=== PATIENT | female | born 1940 | race Caucasian/White ===

== ENCOUNTER 2017-03-19 02:58 | Emergency (ER) | payer MEDICARE ==
[~2017-03-19] VITALS: Ht 160 cm; Wt 81.8 kg
[2017-03-19 06:20] VITALS: BP 141/82
[2017-03-19] MEDS ORDERED: LIDOCAINE HCL/PF 1% 2 ML VIAL IM ONE (06:45)
[2017-03-19] MEDS ORDERED: CefTRIAXone SODIUM 1 GM/VIAL IM ONE (06:45)
== END 2017-03-19 07:20 | disposition home or self-care (01) ==
LOC: EMS 02:59
DX: J40 Bronchitis, not specified as acute or chronic (principal); E78.00 Pure hypercholesterolemia, unspecified; I10 Essential (primary) hypertension
CPT/HCPCS: 71045; 99283; J0696; J3490

== ENCOUNTER 2017-04-12 13:58 | Emergency (ER) | payer MEDICARE ==
[~2017-04-12] VITALS: Ht 160 cm; Wt 102.7 kg
[2017-04-12 14:20] VITALS: BP 155/76
[2017-04-12] MEDS: GuaiFENesin/D-METHORPHAN [SUGAR-FREE] 200-20MG/10 ML SYRUP UDCUP PO ONE (15:48)
== END 2017-04-12 16:08 | disposition home or self-care (01) ==
LOC: EMS 14:00
DX: I10 Essential (primary) hypertension (principal); J40 Bronchitis, not specified as acute or chronic; E78.00 Pure hypercholesterolemia, unspecified
CPT/HCPCS: 99283

== ENCOUNTER 2017-09-23 23:25 | Emergency (ER) | payer MEDICARE ==
[~2017-09-23] VITALS: Ht 162.6 cm; Wt 100.0 kg
[2017-09-24 00:33] LABS: BASOPHILS % (AUTO) 0.9 % (0.0-2.0); EOSINOPHILS % (AUTO) 3.4 % (1.0-6.0); HEMATOCRIT 34.5 % (36-46); HEMOGLOBIN 11.6 g/dL (12.0-16.0); LYMPHOCYTES # (AUTO) 1.3 K/uL (1.0-4.8); MEAN CORPUSCULAR HEMOGLOBIN 29.8 pg (26.0-34.0); MEAN CORPUSCULAR HGB CONC 33.8 G/dL (31.0-37.0); MEAN CORPUSCULAR VOLUME 88 fL (80-100); MONOCYTES # (AUTO) 0.5 K/uL (0.1-1.0); MONOCYTES % (AUTO) 7.8 % (2.0-9.0); NEUTROPHILS % (AUTO) 66.9 % (40.0-70.0); PLATELET COUNT (AUTO) 183 K/uL (150-450); RED CELL DISTRIBUTION WIDTH 14.1 % (11.5-14.5)
[2017-09-24 00:40] LABS: ANION GAP 8 mmol/L (8-16); CALCIUM, TOTAL 8.6 mg/dL (8.8-10.5); CARBON DIOXIDE 25 mmol/L (22-29); CHLORIDE 105 mmol/L (98-107); CREATININE 0.74 mg/dL (0.60-1.30); GLUCOSE,RANDOM 110 mg/dL (70-110); POTASSIUM 3.8 mmol/L (3.5-5.1); SODIUM SERUM 138 mmol/L (136-145); UREA NITROGEN, BLOOD 15 mg/dL (7-18)
[2017-09-24 00:41] LABS: GLOMERULAR FILTR. RATE CALC > 60 mL/min (>60)
[2017-09-24 00:46] LABS: ALANINE AMINOTRANSFERASE 13 U/L (12-78); ALBUMIN 3.2 g/dL (3.4-5.0); ALKALINE PHOSPHATASE 93 U/L (46-116); ASPARTATE AMINOTRANSFERASE 11 U/L (15-37); BILIRUBIN,TOTAL 0.4 mg/dL (0.1-1.0); TOTAL PROTEIN, SERUM 7.8 g/dL (6.4-8.2)
[2017-09-24 01:53] LABS: LIPASE 199 U/L (73-393)
[2017-09-24 04:14] VITALS: BP 129/88
== END 2017-09-24 04:47 | disposition home or self-care (01) ==
LOC: EMS 23:26
DX: K64.4 Residual hemorrhoidal skin tags (principal); K59.00 Constipation, unspecified; R60.0 Localized edema; I10 Essential (primary) hypertension; E78.00 Pure hypercholesterolemia, unspecified
CPT/HCPCS: 93005; 99285

== ENCOUNTER 2019-01-09 08:38 | Emergency (ER) | payer MEDICARE ==
[~2019-01-09] VITALS: Ht 167.6 cm; Wt 101.9 kg
[2019-01-09] MEDS ORDERED: SODIUM CHLORIDE 0.9% 1,000 ML IV ONE (09:02)
[2019-01-09] MEDS ORDERED: ACETAMINOPHEN 500 MG TABLET PO ONE (09:15)
[2019-01-09 09:56] LABS: BASOPHILS % (AUTO) 0.3 % (0.0-2.0); EOSINOPHILS % (AUTO) 0.3 % (1.0-6.0); HEMATOCRIT 41.9 % (36-46); HEMOGLOBIN 14.3 g/dL (12.0-16.0); LYMPHOCYTES # (AUTO) 0.4 K/uL (1.0-4.8); LYMPHOCYTES % (AUTO) 5.9 % (22.0-44.0); MEAN CORPUSCULAR HEMOGLOBIN 31.1 pg (26.0-34.0); MEAN CORPUSCULAR HGB CONC 34.1 G/dL (31.0-37.0); MEAN CORPUSCULAR VOLUME 91 fL (80-100); MONOCYTES # (AUTO) 0.1 K/uL (0.1-1.0); MONOCYTES % (AUTO) 1.9 % (2.0-9.0); NEUTROPHILS # (AUTO) 6.1 K/uL (1.8-7.7); PLATELET COUNT (AUTO) 110 K/uL (150-450); RED CELL DISTRIBUTION WIDTH 13.6 % (11.5-14.5)
[2019-01-09 10:04] LABS: NEUTROPHILS % (AUTO) 91.6 % (40.0-70.0)
[2019-01-09 10:05] LABS: BILIRUBIN,URINE NEGATIVE (NEGATIVE); GLUCOSE, URINE (UA) NEGATIVE (NEGATIVE); KETONES,URINE NEGATIVE (NEGATIVE); LEUKOCYTE ESTERASE ,URINE NEGATIVE (NEGATIVE); NITRATE,URINE NEGATIVE (NEGATIVE); OCCULT BLOOD,URINE NEGATIVE (NEGATIVE); PROTEIN,URINE NEGATIVE (NEGATIVE); UROBILINOGEN,URINE 0.2 mg/dL (<=1.0)
[2019-01-09 10:06] LABS: APPEARANCE,URINE CLEAR (CLEAR)
[2019-01-09 10:13] LABS: ANION GAP 11 mmol/L (8-16); CALCIUM, TOTAL 9.3 mg/dL (8.8-10.5); CARBON DIOXIDE 26 mmol/L (22-29); CHLORIDE 103 mmol/L (98-107); CREATININE 0.83 mg/dL (0.60-1.30); GLUCOSE,RANDOM 104 mg/dL (70-110); POTASSIUM 3.2 mmol/L (3.5-5.1); SODIUM SERUM 140 mmol/L (136-145); UREA NITROGEN, BLOOD 14 mg/dL (7-18)
[2019-01-09 10:18] LABS: ALANINE AMINOTRANSFERASE 18 U/L (12-78); ALKALINE PHOSPHATASE 91 U/L (46-116); ASPARTATE AMINOTRANSFERASE 19 U/L (15-37); BILIRUBIN,TOTAL 0.6 mg/dL (0.1-1.0); CREATINE KINASE, TOTAL ONLY 65 U/L (26-192); TOTAL PROTEIN, SERUM 7.8 g/dL (6.4-8.2)
[2019-01-09 10:20] LABS: LACTIC ACID 1.7 mmol/L (0.4-2.0)
[2019-01-09 10:23] LABS: GLOMERULAR FILTR. RATE CALC > 60 mL/min (>60)
[2019-01-09 10:29] LABS: INFLUENZA TYPE A NEGATIVE FOR TYPE A (NEGATIVE); INFLUENZA TYPE B NEGATIVE FOR TYPE B (NEGATIVE)
[2019-01-09] MEDS ORDERED: VANCOMYCIN HCL 1 GM/D5% WATER 200 ML IV ONE (11:00)
[2019-01-09 13:40] VITALS: BP 138/73
== END 2019-01-09 14:05 | disposition short-term general hospital (02) ==
LOC: EMS 08:39
DX: L03.116 Cellulitis of left lower limb (principal); L03.115 Cellulitis of right lower limb; R41.0 Disorientation, unspecified; I10 Essential (primary) hypertension; E78.00 Pure hypercholesterolemia, unspecified; W19.XXXA Unspecified fall, initial encounter; Y93.89 Activity, other specified; Y92.098 Other place in other non-institutional residence as the place of occurrence of the external cause; Y99.8 Other external cause status
CPT/HCPCS: 36415; 70450; 71045; 80053; 81003; 82550; 83605; 84484; 85025; 85610; 85730; 87040; 87804; 93005; 93971; 96361; 96365; 96366; 99285; J3370; J7030; 51702

== ENCOUNTER 2019-01-19 18:56 | Emergency (ER) | payer MEDICARE ==
[~2019-01-19] VITALS: Ht 167.6 cm; Wt 90.9 kg
[2019-01-19] MEDS ORDERED: IBUPROFEN 600 MG TABLET PO ONE (23:00)
[2019-01-19] MEDS ORDERED: LIDOCAINE 5% TRANSDERMAL PATCH TD ONE (23:00)
[2019-01-19 23:43] VITALS: BP 142/74
== END 2019-01-19 23:45 | disposition home or self-care (01) ==
LOC: EMS 18:57
DX: M54.2 Cervicalgia (principal); E78.00 Pure hypercholesterolemia, unspecified; I10 Essential (primary) hypertension

== ENCOUNTER 2019-04-05 14:19 | Emergency (ER) | payer MEDICARE ==
[~2019-04-05] VITALS: Ht 160 cm; Wt 102.7 kg
[2019-04-05 15:16] LABS: BASOPHILS % (AUTO) 0.5 % (0.0-2.0); EOSINOPHILS % (AUTO) 3.2 % (1.0-6.0); HEMATOCRIT 40.4 % (36-46); HEMOGLOBIN 13.6 g/dL (12.0-16.0); LYMPHOCYTES # (AUTO) 0.8 K/uL (1.0-4.8); LYMPHOCYTES % (AUTO) 14.2 % (22.0-44.0); MEAN CORPUSCULAR HGB CONC 33.5 G/dL (31.0-37.0); MEAN CORPUSCULAR VOLUME 93 fL (80-100); MONOCYTES # (AUTO) 0.4 K/uL (0.1-1.0); MONOCYTES % (AUTO) 6.5 % (2.0-9.0); NEUTROPHILS # (AUTO) 4.4 K/uL (1.8-7.7); NEUTROPHILS % (AUTO) 75.6 % (40.0-70.0); PLATELET COUNT (AUTO) 152 K/uL (150-450); RED BLOOD CELL COUNT(AUTO) 4.37 MIL/uL (4.00-5.20); RED CELL DISTRIBUTION WIDTH 14.5 % (11.5-14.5)
[2019-04-05 15:29] LABS: ANION GAP 7 mmol/L (8-16); CALCIUM, TOTAL 9.1 mg/dL (8.8-10.5); CARBON DIOXIDE 27 mmol/L (22-29); CHLORIDE 105 mmol/L (98-107); CREATININE 0.73 mg/dL (0.60-1.30); GLOMERULAR FILTR. RATE CALC > 60 mL/min (>60); GLUCOSE,RANDOM 109 mg/dL (70-110); POTASSIUM 3.8 mmol/L (3.5-5.1); SODIUM SERUM 139 mmol/L (136-145); UREA NITROGEN, BLOOD 8 mg/dL (7-18)
[2019-04-05 15:35] LABS: ALANINE AMINOTRANSFERASE 22 U/L (12-78); ALBUMIN 3.8 g/dL (3.4-5.0); ALKALINE PHOSPHATASE 92 U/L (46-116); ASPARTATE AMINOTRANSFERASE 13 U/L (15-37); BILIRUBIN,TOTAL 0.5 mg/dL (0.1-1.0); CREATINE KINASE, TOTAL ONLY 45 U/L (26-192); TOTAL PROTEIN, SERUM 7.7 g/dL (6.4-8.2)
[2019-04-05] MEDS ORDERED: AMLO10TA7 PO (15:54)
[2019-04-05 18:03] VITALS: BP 150/86
== END 2019-04-05 18:20 | disposition home or self-care (01) ==
LOC: EMS 14:20
DX: R00.2 Palpitations (principal); B35.1 Tinea unguium; F41.9 Anxiety disorder, unspecified; I10 Essential (primary) hypertension; E78.00 Pure hypercholesterolemia, unspecified
CPT/HCPCS: 83735; 93005

== ENCOUNTER 2019-08-07 11:41 | Emergency (ER) | payer MEDICARE ==
[~2019-08-07] VITALS: Ht 160 cm; Wt 90.9 kg
[~2019-08-07 11:41] MED LIST: AMLO10TA7 PO
[2019-08-07 11:47] VITALS: BP 150/84
== END 2019-08-07 13:12 | disposition left against medical advice (07) ==
LOC: EMS 11:42
DX: R10.9 Unspecified abdominal pain (principal); Z53.21 Procedure and treatment not carried out due to patient leaving prior to being seen by health care provider

== ENCOUNTER 2019-08-11 13:30 | Emergency (ER) | payer MEDICARE ==
[~2019-08-11] VITALS: Ht 160 cm; Wt 90.9 kg
[2019-08-11] MEDS ORDERED: CHOL100018 PO (13:42)
[2019-08-11 15:00] LABS: BASOPHILS % (AUTO) 0.9 % (0.0-2.0); EOSINOPHILS % (AUTO) 1.5 % (1.0-6.0); HEMATOCRIT 39.2 % (36-46); HEMOGLOBIN 13.1 g/dL (12.0-16.0); LYMPHOCYTES # (AUTO) 1.1 K/uL (1.0-4.8); LYMPHOCYTES % (AUTO) 19.7 % (22.0-44.0); MEAN CORPUSCULAR HEMOGLOBIN 30.6 pg (26.0-34.0); MEAN CORPUSCULAR HGB CONC 33.5 G/dL (31.0-37.0); MEAN CORPUSCULAR VOLUME 91 fL (80-100); MONOCYTES # (AUTO) 0.4 K/uL (0.1-1.0); MONOCYTES % (AUTO) 6.7 % (2.0-9.0); NEUTROPHILS # (AUTO) 3.8 K/uL (1.8-7.7); NEUTROPHILS % (AUTO) 71.2 % (40.0-70.0); PLATELET COUNT (AUTO) 144 K/uL (150-450); RED BLOOD CELL COUNT(AUTO) 4.29 MIL/uL (4.00-5.20); RED CELL DISTRIBUTION WIDTH 13.5 % (11.5-14.5)
[2019-08-11 15:14] LABS: ANION GAP 9 mmol/L (8-16); CALCIUM, TOTAL 9.3 mg/dL (8.8-10.5); CARBON DIOXIDE 28 mmol/L (22-29); CHLORIDE 106 mmol/L (98-107); CREATININE 0.69 mg/dL (0.60-1.30); GLOMERULAR FILTR. RATE CALC > 60 mL/min (>60); GLUCOSE,RANDOM 100 mg/dL (70-110); POTASSIUM 3.6 mmol/L (3.5-5.1); SODIUM SERUM 143 mmol/L (136-145); UREA NITROGEN, BLOOD 6 mg/dL (7-18)
[2019-08-11 15:19] LABS: ALANINE AMINOTRANSFERASE 17 U/L (12-78); ALBUMIN 4.1 g/dL (3.4-5.0); ALKALINE PHOSPHATASE 81 U/L (46-116); ASPARTATE AMINOTRANSFERASE 17 U/L (15-37); BILIRUBIN,TOTAL 0.6 mg/dL (0.1-1.0); LIPASE 126 U/L (73-393)
[2019-08-11 17:23] VITALS: BP 123/78
== END 2019-08-11 17:37 | disposition home or self-care (01) ==
LOC: EMS 13:48
DX: K59.00 Constipation, unspecified (principal); E78.00 Pure hypercholesterolemia, unspecified; I10 Essential (primary) hypertension
CPT/HCPCS: 74022; 93005

== ENCOUNTER 2019-12-08 10:43 | Emergency (ER) | payer MEDICARE ==
[~2019-12-08] VITALS: Ht 160 cm; Wt 77.3 kg
[~2019-12-08 10:43] MED LIST changes: +AMLO-258 PO; -AMLO10TA7 PO; +CHOL100018 PO
[2019-12-08 12:23] LABS: BASOPHILS % (AUTO) 0.7 % (0.0-2.0); EOSINOPHILS % (AUTO) 1.5 % (1.0-6.0); HEMATOCRIT 38.1 % (36-46); HEMOGLOBIN 13.2 g/dL (12.0-16.0); LYMPHOCYTES # (AUTO) 0.7 K/uL (1.0-4.8); LYMPHOCYTES % (AUTO) 13.2 % (22.0-44.0); MEAN CORPUSCULAR HGB CONC 34.7 G/dL (31.0-37.0); MEAN CORPUSCULAR VOLUME 92 fL (80-100); MONOCYTES # (AUTO) 0.3 K/uL (0.1-1.0); NEUTROPHILS # (AUTO) 3.9 K/uL (1.8-7.7); NEUTROPHILS % (AUTO) 77.6 % (40.0-70.0); PLATELET COUNT (AUTO) 130 K/uL (150-450); RED BLOOD CELL COUNT(AUTO) 4.13 MIL/uL (4.00-5.20); RED CELL DISTRIBUTION WIDTH 13.5 % (11.5-14.5)
[2019-12-08 12:31] LABS: ANION GAP 9 mmol/L (8-16); CALCIUM, TOTAL 9.4 mg/dL (8.8-10.5); CARBON DIOXIDE 26 mmol/L (22-29); CHLORIDE 105 mmol/L (98-107); CREATININE 0.63 mg/dL (0.60-1.30); GLOMERULAR FILTR. RATE CALC > 60 mL/min (>60); GLUCOSE,RANDOM 103 mg/dL (70-110); POTASSIUM 3.7 mmol/L (3.5-5.1); SODIUM SERUM 140 mmol/L (136-145); UREA NITROGEN, BLOOD 5 mg/dL (7-18)
[2019-12-08 12:38] LABS: ALANINE AMINOTRANSFERASE 15 U/L (12-78); ALBUMIN 3.8 g/dL (3.4-5.0); ALKALINE PHOSPHATASE 89 U/L (46-116); ASPARTATE AMINOTRANSFERASE 16 U/L (15-37); BILIRUBIN,TOTAL 0.6 mg/dL (0.1-1.0); CREATINE KINASE, TOTAL ONLY 55 U/L (26-192); TOTAL PROTEIN, SERUM 7.1 g/dL (6.4-8.2)
[2019-12-08 13:02] LABS: B-TYPE NATRIURETIC PEPTIDE 93 pg/mL (0-100)
[2019-12-08 13:56] LABS: APPEARANCE,URINE CLEAR (CLEAR); BILIRUBIN,URINE NEGATIVE (NEGATIVE); GLUCOSE, URINE (UA) NEGATIVE (NEGATIVE); KETONES,URINE NEGATIVE (NEGATIVE); LEUKOCYTE ESTERASE ,URINE NEGATIVE (NEGATIVE); NITRATE,URINE NEGATIVE (NEGATIVE); OCCULT BLOOD,URINE MODERATE (NEGATIVE); PROTEIN,URINE NEGATIVE (NEGATIVE); UROBILINOGEN,URINE 0.2 mg/dL (<=1.0)
[2019-12-08 14:20] LABS: BACTERIA,URINE None Seen /HPF (None Seen); RBC,URINE 0-2 /HPF (0-2); SQUAMOUS EPITHELIAL CELL,UR Few /LPF (None Seen); WBC,URINE None Seen /HPF (0-5)
[2019-12-08 14:39] VITALS: BP 140/68
== END 2019-12-08 14:55 | disposition home or self-care (01) ==
LOC: EMS 10:45
DX: R07.89 Other chest pain (principal); E78.00 Pure hypercholesterolemia, unspecified; I10 Essential (primary) hypertension
CPT/HCPCS: 93005; 36415-L1; 36415-TC; 71045-TC

== ENCOUNTER 2020-06-22 13:18 | Emergency (ER) | payer MEDICARE ==
[~2020-06-22] VITALS: Ht 160 cm; Wt 81.8 kg
[~2020-06-22 13:18] MED LIST changes: -CHOL100018 PO; +CHOL100044 PO
[2020-06-22] MEDS ORDERED: AMOX500T2 PO (13:29)
[2020-06-22 15:00] VITALS: BP 130/66
== END 2020-06-22 15:25 | disposition home or self-care (01) ==
LOC: EMS 13:21
DX: H66.92 Otitis media, unspecified, left ear (principal); K04.7 Periapical abscess without sinus; E78.00 Pure hypercholesterolemia, unspecified; I10 Essential (primary) hypertension
CPT/HCPCS: 99281; 99283

== ENCOUNTER 2020-06-27 14:25 | Emergency (ER) | payer MEDICARE ==
[~2020-06-27] VITALS: Ht 160 cm; Wt 81.8 kg
[~2020-06-27 14:25] MED LIST changes: +AMOX500T2 PO
[2020-06-27] MEDS ORDERED: ValACYclovir HCL 500 MG TABLET PO ONE (15:00)
[2020-06-27] MEDS ORDERED: NEOMYCIN/POLYMYXIN B/HYDROCORT 10 ML OTIC SOLUTION AS ONE (15:00)
[2020-06-27] MEDS ORDERED: FLUORESCEIN SODIUM 1 MG STRIP OS ONE (15:00)
[2020-06-27] MEDS ORDERED: PROPARACAINE HCL 0.5% 15 ML OPHTHALMIC SOLUTION OS ONE (15:00)
[2020-06-27 15:44] VITALS: BP 129/65
== END 2020-06-27 15:50 | disposition home or self-care (01) ==
LOC: EMS 14:30
DX: B02.29 Other postherpetic nervous system involvement (principal)
CPT/HCPCS: 99284; Z7502; Z7610

== ENCOUNTER 2020-07-06 15:25 | Emergency (ER) | payer MEDICARE ==
[~2020-07-06] VITALS: Ht 160 cm; Wt 84.5 kg
[2020-07-06 18:12] VITALS: BP 128/79
== END 2020-07-06 18:50 | disposition home or self-care (01) ==
LOC: EMS 15:25
DX: B02.8 Zoster with other complications (principal); H92.02 Otalgia, left ear; I10 Essential (primary) hypertension; E78.00 Pure hypercholesterolemia, unspecified
CPT/HCPCS: 99283

== ENCOUNTER 2020-07-18 19:03 | Emergency (ER) | payer MEDICARE ==
[~2020-07-18] VITALS: Ht 160 cm; Wt 79.5 kg
[~2020-07-18 19:03] MED LIST changes: -AMOX500T2 PO
[2020-07-18 19:35] VITALS: BP 132/61
[2020-07-18] MEDS ORDERED: AMLO-257 PO (20:34)
[2020-07-18] MEDS ORDERED: LIDOCAINE 5% TRANSDERMAL PATCH TD ONE (20:45)
== END 2020-07-18 21:29 | disposition home or self-care (01) ==
LOC: EMS 19:05
DX: B02.22 Postherpetic trigeminal neuralgia (principal); R42 Dizziness and giddiness; I10 Essential (primary) hypertension; E78.00 Pure hypercholesterolemia, unspecified
CPT/HCPCS: 99283

== ENCOUNTER 2022-08-14 08:43 | Emergency (ER) | payer MEDICARE, OTHER ==
[~2022-08-14] VITALS: Ht 160 cm; Wt 101.8 kg
[~2022-08-14 08:43] MED LIST changes: +AMLO-257 PO; -AMLO-258 PO; -CHOL100044 PO; +CHOL25TA4 PO
[2022-08-14 08:47] VITALS: TEMP 98.7
[2022-08-14 10:46] LABS: BASOPHILS % (AUTO) 2.3 % (0.0-2.0); EOSINOPHILS % (AUTO) 4.2 % (1.0-6.0); HEMATOCRIT 22.7 % (36-46); LYMPHOCYTES % (AUTO) 21.2 % (22.0-44.0); MEAN CORPUSCULAR HGB CONC 29.9 G/dL (31.0-37.0); MEAN CORPUSCULAR VOLUME 67 fL (80-100); MONOCYTES # (AUTO) 0.2 K/uL (0.1-1.0); MONOCYTES % (AUTO) 5.1 % (2.0-9.0); NEUTROPHILS # (AUTO) 3.1 K/uL (1.8-7.7); NEUTROPHILS % (AUTO) 67.2 % (40.0-70.0); PLATELET COUNT (AUTO) 178 K/uL (150-450); RED BLOOD CELL COUNT(AUTO) 3.39 MIL/uL (4.00-5.20); RED CELL DISTRIBUTION WIDTH 19.4 % (11.5-14.5)
[2022-08-14 10:59] LABS: ANION GAP 12 mmol/L (8-16); CALCIUM, TOTAL 8.5 mg/dL (8.8-10.5); CARBON DIOXIDE 24 mmol/L (22-29); CHLORIDE 104 mmol/L (98-107); CREATININE 0.73 mg/dL (0.60-1.30); GLOMERULAR FILTR. RATE CALC > 60 mL/min (>60); GLUCOSE,RANDOM 100 mg/dL (70-110); HEMOGLOBIN 6.8 g/dL (12.0-16.0); POTASSIUM 3.9 mmol/L (3.5-5.1); SODIUM SERUM 140 mmol/L (136-145)
[2022-08-14 11:05] LABS: ALANINE AMINOTRANSFERASE 12 U/L (12-78); ALBUMIN 3.9 g/dL (3.4-5.0); ALKALINE PHOSPHATASE 81 U/L (46-116); ASPARTATE AMINOTRANSFERASE 14 U/L (15-37); BILIRUBIN,TOTAL 0.5 mg/dL (0.1-1.0); TOTAL PROTEIN, SERUM 7.2 g/dL (6.4-8.2)
[2022-08-14 12:58] VITALS: BP 138/82; PULSE 72; RESP 18
== END 2022-08-14 13:30 | disposition left against medical advice (07) ==
LOC: EMS 08:47
DX: M25.512 Pain in left shoulder (principal); D64.9 Anemia, unspecified; F41.9 Anxiety disorder, unspecified; E78.00 Pure hypercholesterolemia, unspecified; I10 Essential (primary) hypertension
CPT/HCPCS: 80053; 84484; 85025; 93005; 99284

== ENCOUNTER 2022-08-19 15:59 | Emergency (ER) | payer OTHER ==
[~2022-08-19] VITALS: Ht 160 cm; Wt 100.0 kg
[2022-08-19] MEDS ORDERED: SODIUM CHLORIDE 0.9% 250 ML IV ONE (18:15)
[2022-08-19 18:24] LABS: HEMATOCRIT 22.8 % (36-46); LYMPHOCYTES % (AUTO) 17.3 % (22.0-44.0); MEAN CORPUSCULAR HEMOGLOBIN 20.6 pg (26.0-34.0); MEAN CORPUSCULAR HGB CONC 30.9 G/dL (31.0-37.0); MEAN CORPUSCULAR VOLUME 67 fL (80-100); MONOCYTES # (AUTO) 0.5 K/uL (0.1-1.0); MONOCYTES % (AUTO) 8.9 % (2.0-9.0); NEUTROPHILS % (AUTO) 70.8 % (40.0-70.0); PLATELET COUNT (AUTO) 191 K/uL (150-450); RED BLOOD CELL COUNT(AUTO) 3.42 MIL/uL (4.00-5.20); RED CELL DISTRIBUTION WIDTH 19.1 % (11.5-14.5)
[2022-08-19 18:31] LABS: ANION GAP 7 mmol/L (8-16); CALCIUM, TOTAL 8.7 mg/dL (8.8-10.5); CARBON DIOXIDE 28 mmol/L (22-29); CHLORIDE 105 mmol/L (98-107); CREATININE 0.79 mg/dL (0.60-1.30); GLOMERULAR FILTR. RATE CALC > 60 mL/min (>60); GLUCOSE,RANDOM 93 mg/dL (70-110); POTASSIUM 3.9 mmol/L (3.5-5.1); SODIUM SERUM 140 mmol/L (136-145)
[2022-08-19 18:37] LABS: PROTHROMBIN TIME 10.8 SEC (9.4-11.6)
[2022-08-19 18:38] LABS: ALANINE AMINOTRANSFERASE 12 U/L (12-78); ALBUMIN 3.7 g/dL (3.4-5.0); ALKALINE PHOSPHATASE 87 U/L (46-116); ASPARTATE AMINOTRANSFERASE 11 U/L (15-37); BILIRUBIN,TOTAL 0.4 mg/dL (0.1-1.0); LIPASE 125 U/L (73-393); TOTAL PROTEIN, SERUM 7.3 g/dL (6.4-8.2)
[2022-08-19] MEDS ORDERED: AZITHROMYCIN 500 MG/NS 250 ML IV ONE (19:00)
[2022-08-19] MEDS ORDERED: CefTRIAXone 1 GM/DEXTROSE 50 ML IV ONE (19:00)
[2022-08-19 20:15] LABS: COVID AG,FIA SOURCE NASAL SWAB
[2022-08-19 20:39] VITALS: BP 155/69; PULSE 97; RESP 16; TEMP 98.3
[2022-08-19 20:42] LABS: INFLUENZA TYPE A NEGATIVE FOR TYPE A (NEGATIVE); INFLUENZA TYPE B NEGATIVE FOR TYPE B (NEGATIVE)
== END 2022-08-19 23:13 | disposition short-term general hospital (02) ==
LOC: EMS 16:02
DX: J18.9 Pneumonia, unspecified organism (principal); D64.9 Anemia, unspecified; F41.9 Anxiety disorder, unspecified; E78.00 Pure hypercholesterolemia, unspecified; I10 Essential (primary) hypertension; Z20.822 Contact with and (suspected) exposure to COVID-19
CPT/HCPCS: 99285; 96365; 71045; 96375; 87426; 80053; 83690; 83880; 85025; 85610; 85730; 87040; 87804; 86850; 86900; 86901; 86923; 93005; 36415; J0456; J0696; J7050

== ENCOUNTER 2023-01-25 15:57 | Emergency (ER) | payer MEDICARE, OTHER ==
[~2023-01-25] VITALS: Ht 160 cm; Wt 106.8 kg
[2023-01-25 16:01] VITALS: TEMP 98.3
[2023-01-25 19:56] LABS: APPEARANCE,URINE CLEAR (CLEAR); BILIRUBIN,URINE NEGATIVE (NEGATIVE); COLOR,URINE COLORLESS (YELLOW); GLUCOSE, URINE (UA) NEGATIVE (NEGATIVE); KETONES,URINE NEGATIVE (NEGATIVE); LEUKOCYTE ESTERASE ,URINE NEGATIVE (NEGATIVE); NITRATE,URINE NEGATIVE (NEGATIVE); OCCULT BLOOD,URINE SMALL (NEGATIVE); PH,URINE 6.5 (5.0-8.0); PH,URINE DRUG SCREEN 6.5 (5.0-8.0); PROTEIN,URINE NEGATIVE (NEGATIVE); SPECIFIC GRAVITIY, URINE 1.008 (1.003-1.030); UROBILINOGEN,URINE <=1.0 mg/dL (<=1.0)
[2023-01-25 20:01] LABS: AMPHET/METH SCREEN,URINE NEGATIVE (NEGATIVE); BARBITURATE SCREEN, URINE NEGATIVE (NEGATIVE); BENZODIAZEPINES SCREEN,URINE NEGATIVE (NEGATIVE); CANNABINOID SCREEN,URINE NEGATIVE (NEGATIVE); COCAINE SCREEN,URINE NEGATIVE (NEGATIVE); METHADONE SCREEN, URINE NEGATIVE (NEGATIVE); OPIATE SCREEN,URINE NEGATIVE (NEGATIVE); PHENCYCLIDINE SCREEN,URINE NEGATIVE (NEGATIVE)
[2023-01-25 20:04] LABS: ALCOHOL, URINE DRUG SCREEN NEGATIVE (NEGATIVE)
[2023-01-25 20:18] LABS: BASOPHILS % (AUTO) 0.9 % (0.0-2.0); EOSINOPHILS % (AUTO) 1.4 % (1.0-6.0); HEMATOCRIT 21.9 % (36-46); LYMPHOCYTES % (AUTO) 21.4 % (22.0-44.0); MEAN CORPUSCULAR HEMOGLOBIN 20.4 pg (26.0-34.0); MEAN CORPUSCULAR HGB CONC 30.4 G/dL (31.0-37.0); MEAN CORPUSCULAR VOLUME 67 fL (80-100); MONOCYTES # (AUTO) 0.2 K/uL (0.1-1.0); MONOCYTES % (AUTO) 5.3 % (2.0-9.0); NEUTROPHILS # (AUTO) 3.2 K/uL (1.8-7.7); PLATELET COUNT (AUTO) 209 K/uL (150-450); RED BLOOD CELL COUNT(AUTO) 3.26 MIL/uL (4.00-5.20); RED CELL DISTRIBUTION WIDTH 19.9 % (11.5-14.5); WHITE BLOOD COUNT (AUTO) 4.4 K/uL (4.5-11.0)
[2023-01-25 20:26] LABS: ANION GAP 9 mmol/L (8-16); CALCIUM, TOTAL 8.6 mg/dL (8.8-10.5); CARBON DIOXIDE 24 mmol/L (22-29); CHLORIDE 105 mmol/L (98-107); CREATININE 0.71 mg/dL (0.60-1.30); GLOMERULAR FILTR. RATE CALC > 60 mL/min (>60); GLUCOSE,RANDOM 104 mg/dL (70-110); POTASSIUM 3.5 mmol/L (3.5-5.1); SODIUM SERUM 138 mmol/L (136-145); UREA NITROGEN, BLOOD 12 mg/dL (7-18)
[2023-01-25 20:31] LABS: ALANINE AMINOTRANSFERASE 19 U/L (12-78); ALBUMIN 3.6 g/dL (3.4-5.0); ALKALINE PHOSPHATASE 78 U/L (46-116); ASPARTATE AMINOTRANSFERASE 17 U/L (15-37); BILIRUBIN,TOTAL 0.5 mg/dL (0.1-1.0); LIPASE 47 U/L (16-77); TOTAL PROTEIN, SERUM 7.6 g/dL (6.4-8.2)
[2023-01-25 20:34] LABS: ALCOHOL, BLOOD (SERUM) < 3 mg/dL (0-10)
[2023-01-25 20:36] LABS: TROPONIN I-HIGH SENSITIVITY 34 ng/L (<51)
[2023-01-25 20:37] LABS: HEMOGLOBIN 6.7 g/dL (12.0-16.0)
[2023-01-25 21:02] LABS: BACTERIA,URINE None Seen /HPF (None Seen); RBC,URINE 0-2 /HPF (0-2); SQUAMOUS EPITHELIAL CELL,UR None Seen /LPF (None Seen); WBC,URINE None Seen /HPF (0-5)
[2023-01-25] MEDS ORDERED: FUROSEMIDE 40 MG/4 ML VIAL IVP ONE (21:30)
[2023-01-25 21:45] VITALS: BP 149/70; PULSE 79; RESP 17
[2023-01-25 21:46] LABS: RBC MORPHOLOGY COMMENT ABNORMAL RBC MORPH
[2023-01-25 22:00] LABS: COVID AG,FIA SOURCE NASAL SWAB
[2023-01-25 22:33] LABS: SARS-COV2 (COVID) ANTIGEN,FIA Negative (Negative)
== END 2023-01-25 23:19 | disposition short-term general hospital (02) ==
LOC: EMS 15:58
DX: S00.83XA Contusion of other part of head, initial encounter (principal); D64.9 Anemia, unspecified; R55 Syncope and collapse; R53.1 Weakness; I11.0 Hypertensive heart disease with heart failure; I50.83 High output heart failure; E78.00 Pure hypercholesterolemia, unspecified; Z59.00 Homelessness unspecified; Z20.822 Contact with and (suspected) exposure to COVID-19; X58.XXXA Exposure to other specified factors, initial encounter; Y93.89 Activity, other specified; Y92.89 Other specified places as the place of occurrence of the external cause; Y99.8 Other external cause status
CPT/HCPCS: 99285; 70450; 96374; 71045; 87426; 80053; 81001; 83605; 83690; 84484; 85025; 36415; 70486; 93005; 80307; J1940; G0480

== ENCOUNTER 2023-08-02 13:59 | Emergency (ER) | payer MEDICARE ==
[~2023-08-02] VITALS: Ht 160 cm; Wt 86.4 kg
[~2023-08-02 13:59] MED LIST changes: -AMLO-257 PO; -CHOL25TA4 PO; +DOCU-385 PO; +FERR325T27 PO; +PANT-31 PO
[2023-08-02 14:21] VITALS: TEMP 98
[2023-08-02] MEDS ORDERED: ACET-3385 PO (18:31)
[2023-08-02 19:25] VITALS: BP 141/64; PULSE 74; RESP 16
== END 2023-08-02 19:27 | disposition home or self-care (01) ==
LOC: EMS 14:05
DX: M25.561 Pain in right knee (principal); M25.562 Pain in left knee; I10 Essential (primary) hypertension
CPT/HCPCS: 99282; Z7502

== ENCOUNTER 2023-08-11 01:12 | Emergency (ER) | payer MEDICARE ==
[~2023-08-11] VITALS: Ht 160 cm; Wt 90.9 kg
[~2023-08-11 01:12] MED LIST changes: +ACET-3385 PO; -DOCU-385 PO
[2023-08-11 01:21] VITALS: TEMP 98.2
[2023-08-11 03:49] LABS: BASOPHILS % (AUTO) 0.5 % (0.0-2.0); EOSINOPHILS % (AUTO) 1.8 % (1.0-6.0); HEMATOCRIT 32.1 % (36-46); HEMOGLOBIN 10.4 g/dL (12.0-16.0); LYMPHOCYTES # (AUTO) 1.1 K/uL (1.0-4.8); MEAN CORPUSCULAR HEMOGLOBIN 27.1 pg (26.0-34.0); MEAN CORPUSCULAR HGB CONC 32.4 G/dL (31.0-37.0); MEAN CORPUSCULAR VOLUME 84 fL (80-100); MONOCYTES # (AUTO) 0.4 K/uL (0.1-1.0); MONOCYTES % (AUTO) 6.9 % (2.0-9.0); NEUTROPHILS # (AUTO) 3.6 K/uL (1.8-7.7); NEUTROPHILS % (AUTO) 69.8 % (40.0-70.0); PLATELET COUNT (AUTO) 146 K/uL (150-450); RED BLOOD CELL COUNT(AUTO) 3.84 MIL/uL (4.00-5.20); RED CELL DISTRIBUTION WIDTH 23.3 % (11.5-14.5); WHITE BLOOD COUNT (AUTO) 5.1 K/uL (4.5-11.0)
[2023-08-11 04:04] VITALS: BP 139/65; PULSE 79; RESP 16
[2023-08-11 04:15] LABS: ANION GAP 7 mmol/L (8-16); CALCIUM, TOTAL 8.8 mg/dL (8.8-10.5); CARBON DIOXIDE 29 mmol/L (22-29); CHLORIDE 104 mmol/L (98-107); CREATININE 0.61 mg/dL (0.60-1.30); GLOMERULAR FILTR. RATE CALC > 60 mL/min (>60); GLUCOSE,RANDOM 92 mg/dL (70-110); POTASSIUM 3.6 mmol/L (3.5-5.1); SODIUM SERUM 140 mmol/L (136-145); UREA NITROGEN, BLOOD 11 mg/dL (7-18)
[2023-08-11 04:25] LABS: TROPONIN I-HIGH SENSITIVITY 15 ng/L (<51)
[2023-08-11] MEDS ORDERED: HYDR30CR3 TP (04:36)
[2023-08-11] MEDS ORDERED: POLY119P3 PO (04:36)
[2023-08-11] MEDS ORDERED: ANUSHCS PR (04:36)
[2023-08-11 05:13] LABS: RBC MORPHOLOGY COMMENT ABNORMAL RBC MORPH
== END 2023-08-11 05:05 | disposition home or self-care (01) ==
LOC: EMS 01:13
DX: K64.4 Residual hemorrhoidal skin tags (principal); K64.8 Other hemorrhoids; K59.00 Constipation, unspecified; E78.00 Pure hypercholesterolemia, unspecified; I10 Essential (primary) hypertension
CPT/HCPCS: 80048; 84484; 85025; 99283

== ENCOUNTER 2023-11-20 19:20 | Inpatient (IN) | payer MEDICARE ==
[~2023-11-20] VITALS: Ht 162.6 cm; Wt 88.2 kg
[~2023-11-20 19:20] MED LIST changes: +ANUSHCS PR; +HYDR30CR3 TP; +POLY119P3 PO
[2023-11-20 20:43] LABS: BASOPHILS % (AUTO) 0.6 % (0.0-2.0); EOSINOPHILS % (AUTO) 3.5 % (1.0-6.0); HEMATOCRIT 29.9 % (36-46); HEMOGLOBIN 9.5 g/dL (12.0-16.0); LYMPHOCYTES # (AUTO) 0.6 K/uL (1.0-4.8); LYMPHOCYTES % (AUTO) 11.7 % (22.0-44.0); MEAN CORPUSCULAR HEMOGLOBIN 26.4 pg (26.0-34.0); MEAN CORPUSCULAR HGB CONC 31.8 G/dL (31.0-37.0); MEAN CORPUSCULAR VOLUME 83 fL (80-100); MONOCYTES # (AUTO) 0.4 K/uL (0.1-1.0); NEUTROPHILS % (AUTO) 77.2 % (40.0-70.0); PLATELET COUNT (AUTO) 182 K/uL (150-450); RED CELL DISTRIBUTION WIDTH 15.4 % (11.5-14.5); WHITE BLOOD COUNT (AUTO) 5.2 K/uL (4.5-11.0)
[2023-11-20 20:49] LABS: ANION GAP 11 mmol/L (8-16); CALCIUM, TOTAL 8.8 mg/dL (8.8-10.5); CARBON DIOXIDE 26 mmol/L (22-29); CHLORIDE 102 mmol/L (98-107); CREATININE 0.79 mg/dL (0.60-1.30); GLOMERULAR FILTR. RATE CALC > 60 mL/min (>60); GLUCOSE,RANDOM 112 mg/dL (70-110); POTASSIUM 3.7 mmol/L (3.5-5.1); SODIUM SERUM 139 mmol/L (136-145); UREA NITROGEN, BLOOD 13 mg/dL (7-18)
[2023-11-21] MEDS: OLANZapine 10 MG TABLET PO ONE (01:20)
[2023-11-21] MEDS: LORazepam 1 MG TABLET PO ONE (01:20)
[2023-11-21] MEDS ORDERED: CLIN-142 PO (02:27)
[2023-11-21] MEDS: CLINDAMYCIN PHOS 150 MG/ML 4 ML VIAL IM ONE (02:42)
[2023-11-21 08:30] LABS: COVID AG,FIA SOURCE NASAL SWAB
[2023-11-21 08:55] LABS: APPEARANCE,URINE CLEAR (CLEAR); BILIRUBIN,URINE NEGATIVE (NEGATIVE); COLOR,URINE COLORLESS (YELLOW); GLUCOSE, URINE (UA) NEGATIVE (NEGATIVE); KETONES,URINE NEGATIVE (NEGATIVE); LEUKOCYTE ESTERASE ,URINE NEGATIVE (NEGATIVE); NITRATE,URINE NEGATIVE (NEGATIVE); OCCULT BLOOD,URINE NEGATIVE (NEGATIVE); PROTEIN,URINE NEGATIVE (NEGATIVE); SPECIFIC GRAVITIY, URINE 1.004 (1.003-1.030); UROBILINOGEN,URINE <=1.0 mg/dL (<=1.0)
[2023-11-21 09:01] LABS: ALCOHOL, URINE DRUG SCREEN NEGATIVE (NEGATIVE); AMPHET/METH SCREEN,URINE NEGATIVE (NEGATIVE); BARBITURATE SCREEN, URINE NEGATIVE (NEGATIVE); BENZODIAZEPINES SCREEN,URINE NEGATIVE (NEGATIVE); CANNABINOID SCREEN,URINE NEGATIVE (NEGATIVE); COCAINE SCREEN,URINE NEGATIVE (NEGATIVE); METHADONE SCREEN, URINE NEGATIVE (NEGATIVE); OPIATE SCREEN,URINE NEGATIVE (NEGATIVE); PHENCYCLIDINE SCREEN,URINE NEGATIVE (NEGATIVE)
[2023-11-21 09:04] LABS: SARS-COV2 (COVID) ANTIGEN,FIA Negative (Negative)
[2023-11-21 09:25] LABS: BACTERIA,URINE None Seen /HPF (None Seen); RBC,URINE None Seen /HPF (0-2); WBC,URINE None Seen /HPF (0-5)
[2023-11-21 09:26] LABS: SQUAMOUS EPITHELIAL CELL,UR Few /LPF (None Seen)
[2023-11-21] MEDS ORDERED: ONDANSETRON HCL 4 MG/2 ML VIAL IVP PRN (12:30)
[2023-11-21] MEDS ORDERED: MAGNESIUM HYDROXIDE SUSPENSION 30 ML UDCUP PO PRN (12:30)
[2023-11-21] MEDS ORDERED: BISACODYL 10 MG RECTAL RECTAL SUPPOSITORY PR PRN (12:30)
[2023-11-21] MEDS: OxyCODONE HCL/ACETAMINOPHEN 5-325 MG TABLET PO PRN (12:39)
[2023-11-21] MEDS: CLINDAMYCIN 300 MG/D5% WATER 50 ML IV SCH (13:23)
[2023-11-21] MEDS: FUROSEMIDE 20 MG TABLET PO SCH (15:20)
[2023-11-21] MEDS: HEPARIN SODIUM,PORCINE 5,000 UNITS/ML VIAL SQ SCH (15:20)
[2023-11-21 16:55] VITALS: BP 119/56; PULSE 85; RESP 18; TEMP 98.4; O2SAT 96
[2023-11-21] MEDS: INFLUENZA VIRUS VACCINE TVS (6MO+) 2024-25/PF 45 MCG/0.5 ML SYRINGE IM. ONE (18:45)
[2023-11-21] MEDS: PNEUMOCOCCAL VACCINE POLYVALENT 0.5 ML SYRINGE [PPSV23] IM. ONE (18:45)
[2023-11-21 20:14] VITALS: BP 139/75; PULSE 89; RESP 18; TEMP 98.2; O2SAT 99
[2023-11-21] MEDS: DOCUSATE SODIUM 100 MG CAPSULE PO SCH (20:24)
[2023-11-22 05:07] VITALS: BP 137/66; PULSE 90; RESP 18; TEMP 98.5; O2SAT 97
[2023-11-22 07:22] LABS: PHOSPHORUS 4.4 mg/dL (2.5-4.9)
[2023-11-22 07:35] VITALS: BP 146/63; PULSE 88; RESP 18; TEMP 98.4; O2SAT 98
[2023-11-22] MEDS: ACETAMINOPHEN 325 MG TABLET PO PRN (08:01)
[2023-11-22] MEDS: FAMOTIDINE 20 MG TABLET PO SCH (08:01)
[2023-11-22 15:30] VITALS: BP 135/60; PULSE 88; RESP 18; TEMP 98.2; O2SAT 100
[2023-11-22] MEDS: OxyCODONE HCL/ACETAMINOPHEN 5-325 MG TABLET PO PRN (16:27)
[2023-11-22 19:36] VITALS: BP 152/70; PULSE 87; RESP 18; TEMP 98.5; O2SAT 99
[2023-11-23 04:08] VITALS: BP 140/78; PULSE 84; RESP 18; TEMP 98.3; O2SAT 99
[2023-11-23 08:10] VITALS: BP 149/68; PULSE 89; RESP 19; TEMP 98.4; O2SAT 97
[2023-11-23] MEDS: MULTIVITAMINS WITH MINERALS, THERAPEUTIC TABLET PO SCH (08:13)
[2023-11-23 16:15] VITALS: BP 144/72; PULSE 82; RESP 19; TEMP 98; O2SAT 98
[2023-11-23 19:47] VITALS: BP 130/74; PULSE 81; RESP 18; TEMP 98.4; O2SAT 100
[2023-11-24 04:00] VITALS: BP 138/84; PULSE 90; RESP 18; TEMP 98.2; O2SAT 99
[2023-11-24 08:04] VITALS: BP 143/83; PULSE 83; RESP 18; TEMP 98.3; O2SAT 100
[2023-11-24] MEDS: FUROSEMIDE 20 MG TABLET PO ONE (14:38)
[2023-11-24 16:09] VITALS: BP 139/68; PULSE 106; RESP 18; TEMP 98.2; O2SAT 99
[2023-11-24 20:07] VITALS: BP 152/75; PULSE 96; RESP 18; TEMP 98.2; O2SAT 97
[2023-11-24] MEDS ORDERED: FUROSEMIDE 20 MG TABLET PO SCH (21:00)
[2023-11-24 23:54] VITALS: BP 144/64; PULSE 88; RESP 19; TEMP 98.1; O2SAT 97
[2023-11-25 04:38] VITALS: BP 116/51; PULSE 86; RESP 18; TEMP 97.7; O2SAT 95
[2023-11-25 08:00] VITALS: BP 123/58; PULSE 84; RESP 18; TEMP 98; O2SAT 96
[2023-11-25] MEDS: FUROSEMIDE 20 MG TABLET PO SCH (08:36)
[2023-11-25] MEDS ORDERED: FURO20TA4 PO (10:30)
[2023-11-25] MEDS ORDERED: MULT-1303 PO (10:30)
[2023-11-25] MEDS ORDERED: FAMO20 PO (10:30)
[2023-11-25] MEDS ORDERED: DOCU-385 PO (10:30)
[2023-11-25 11:07] VITALS: BP 129/58; PULSE 77; RESP 18; TEMP 98.1; O2SAT 95
[2023-11-25 14:58] VITALS: BP 116/60; PULSE 87; RESP 18; TEMP 98; O2SAT 96
[2023-11-25 20:33] VITALS: BP 129/57; PULSE 96; RESP 17; TEMP 98; O2SAT 100
[2023-11-26 00:13] VITALS: BP 144/69; PULSE 85; RESP 17; TEMP 97.9; O2SAT 98
[2023-11-26 05:50] VITALS: BP 119/73; PULSE 81; RESP 17; TEMP 98; O2SAT 100
[2023-11-26 08:00] VITALS: BP 130/53; PULSE 88; RESP 18; TEMP 97.9
[2023-11-26 12:00] VITALS: BP 147/53; PULSE 84; RESP 18; TEMP 97.8; O2SAT 99
[2023-11-26 16:00] VITALS: BP 122/50; PULSE 78; RESP 16; TEMP 98; O2SAT 98
[2023-11-26 20:18] VITALS: BP 137/60; PULSE 87; RESP 18; TEMP 97.7; O2SAT 98
[2023-11-26] MEDS ORDERED: SODIUM CHLORIDE 0.9% 100 ML ONE (21:47)
[2023-11-27 04:51] VITALS: BP 110/60; PULSE 80; RESP 18; TEMP 98.1; O2SAT 97
[2023-11-27 08:00] VITALS: BP 113/57; PULSE 79; RESP 16; TEMP 97.4; O2SAT 100
[2023-11-27 12:00] VITALS: BP 138/60; PULSE 89; RESP 16; TEMP 97.3; O2SAT 100
[2023-11-27 15:06] VITALS: BP 104/78; PULSE 78; RESP 16; TEMP 97.9; O2SAT 98
[2023-11-27 19:25] VITALS: BP 122/60; PULSE 80; RESP 22; TEMP 98.2
[2023-11-28 00:16] VITALS: BP 111/56; PULSE 88; RESP 17; TEMP 98.2; O2SAT 98
[2023-11-28 06:13] VITALS: BP 140/55; PULSE 82; RESP 18; TEMP 97.7; O2SAT 98
[2023-11-28 08:00] VITALS: BP 110/55; PULSE 87; RESP 16; TEMP 98.2; O2SAT 97
[2023-11-28 14:21] VITALS: BP 112/53; PULSE 85; RESP 17; TEMP 98; O2SAT 97
[2023-11-28 16:32] VITALS: BP 153/72; PULSE 80; RESP 18; TEMP 98.1; O2SAT 98
[2023-11-29 01:39] VITALS: BP 137/73; PULSE 87; RESP 17; TEMP 98; O2SAT 97
[2023-11-29 04:39] VITALS: BP 123/63; PULSE 87; RESP 18; TEMP 98.2; O2SAT 98
[2023-11-29 08:09] VITALS: BP 156/76; PULSE 89; RESP 18; TEMP 98.2; O2SAT 99
[2023-11-29 11:36] VITALS: BP 112/73; PULSE 95; RESP 18; TEMP 98.4; O2SAT 98
[2023-11-29 16:21] VITALS: BP 142/75; PULSE 84; RESP 18; TEMP 98.4; O2SAT 98
== END 2023-11-29 19:30 | DRG 602 ==
LOC: EMS 19:20 → EDH 11-21 13:18 → 6S 11-21 16:32 → 5N 11-24 15:48
PROVIDERS: ADMIT Family Medicine; ATTEND Family Medicine
DX: L03.115 Cellulitis of right lower limb (principal); I50.33 Acute on chronic diastolic (congestive) heart failure; L03.116 Cellulitis of left lower limb; I25.10 Atherosclerotic heart disease of native coronary artery without angina pectoris; Z20.822 Contact with and (suspected) exposure to COVID-19; I11.0 Hypertensive heart disease with heart failure; E78.00 Pure hypercholesterolemia, unspecified; Z95.2 Presence of prosthetic heart valve; Z99.3 Dependence on wheelchair
CPT/HCPCS: 71045; 73502; 80048; 80307; 81001; 83735; 84100; 85025; 93005; 93306; 97110; 97116; 97163; 97167; 97530; 97535; 99285; J1644; J3490; J7050; 36415-L1; 36415-TC